=== PATIENT | male | born 1955 | race Caucasian/White ===

== ENCOUNTER 2017-06-20 08:39 | Inpatient (IN) | payer MEDICAID, OTHER ==
[~2017-06-20] VITALS: Ht 180.3 cm; Wt 36.1 kg
[2017-06-20 09:22] LABS: Basophils # (auto) 0.1 uL; Eosinophils # (auto) 0.1 uL; Eosinophils % (auto) 0.9 % (0.0-7.0); Hematocrit 36.5 % (41.0-53.0); Hemoglobin 11.5 g/dL (13.5-17.5); Lymphocytes # (auto) 0.2 uL; Lymphocytes % (auto) 3.9 % (10.0-50.0); Mean Corpuscular Hemoglobin 29.3 pg (28.0-32.0); Mean Corpuscular Hgb Conc. 31.5 g/dL (32.0-36.0); Mean Corpuscular Volume 93.1 fL (80.0-100.0); Monocytes # (auto) 0.4 uL; Monocytes % (auto) 6.7 % (0.0-12.0); Neutrophils # (auto) 5.4 uL; Neutrophils % (auto) 87.5 % (37.0-80.0); Platelet Count (auto) 215 10^3/uL (140-450); Red Blood Cells 3.92 10^6/uL (4.5-5.90); Red Cell Distribution Width 15.5 % (11.8-14.3); White Blood Cell 6.2 10^3/uL (4.4-10.8)
[2017-06-20 09:47] LABS: Alanine Aminotransferase 86 U/L (16-61); Albumin 2.5 g/dL (3.4-5.0); Anion Gap 4 (5-15); Aspartate Aminotransferase 39 U/L (15-37); BUN/Creatinine Ratio 47.1; Blood Urea Nitrogen 32 mg/dL (7-18); Calcium 8.8 mg/dL (8.5-10.1); Carbon Dioxide 35 mmol/L (21-32); Chloride 100 mmol/L (98-107); GFR African American 151 mL/min; GFR Non-African American 125 mL/min; Glucose 108 mg/dL (74-106); Magnesium 2.3 mg/dL (1.6-2.6); Potassium 4.3 mmol/L (3.5-5.1); Sodium 139 mmol/L (136-145)
[2017-06-20 09:52] LABS: Alkaline Phosphatase 79 U/L (45-117); Bilirubin, Total 0.6 mg/dL (0.2-1.0); Total Protein 5.6 g/dL (6.4-8.2)
[2017-06-20 10:41] LABS: Urine Bacteria NONE SEEN /hpf (None Seen); Urine Blood 1+ /uL (Negative); Urine Specific Gravity 1.011 (1.001-1.035); Urine WBC 3 /hpf (0 - 3)
[2017-06-20] MEDS ORDERED: FUROSEMIDE 40 MG/4 ML VIAL IV ONE (15:00)
[2017-06-20] MEDS ORDERED: SPIRONOLACTONE 25 MG TAB PO ONE (15:00)
[2017-06-20] MEDS ORDERED: HYDROcodone-ACET 5/325MG TAB PO PRN (15:30)
[2017-06-20] MEDS ORDERED: LORazepam 0.5 MG TAB PO PRN (15:30)
[2017-06-20] MEDS ORDERED: MORPHINE SULFATE 4 MG/ML SYR/VIAL IV PRN ×2 (15:30)
[2017-06-20] MEDS ORDERED: OSELTAMIVIR 75 MG CAP PO ONE (15:30)
[2017-06-20] MEDS ORDERED: LACTULOSE 20Gm/30ML SOLN PO PRN (15:30)
[2017-06-20] MEDS ORDERED: NITROGLYCERIN 0.4 MG SL TAB SL PRN (15:30)
[2017-06-20] MEDS ORDERED: ACETAMINOPHEN 500 MG TAB PO PRN (15:30)
[2017-06-20] MEDS ORDERED: ALBUTEROL SULF 2.5 MG/0.5ML(0.5%) NEB SOLN NEB PRN (15:30)
[2017-06-20] MEDS ORDERED: PROMETHAZINE HCL 25 MG/ML 1ML IV PRN (15:30)
[2017-06-20] MEDS ORDERED: TEMAZEPAM 15 MG CAP PO PRN (15:30)
[2017-06-20] MEDS: PANTOPRAZOLE 40 MG TAB PO SCH (16:00)
[2017-06-20] MEDS: DOXYCYCLINE HYC 100MG/250ML 250 ML IV SCH (16:00)
[2017-06-20] MEDS: methylPREDNISolone SOD SUCC 40 MG/ML VL IV SCH (16:00)
[2017-06-20] MEDS: POTASSIUM CHL 20 Meq TABLET PO SCH (16:00)
[2017-06-20 16:07] VITALS: BP 113/83
[2017-06-20 18:00] VITALS: BP 130/74
[2017-06-20] MEDS: NITROGLYCERIN 0.2MG/HR TOPICAL PATCH TD SCH (18:22)
[2017-06-20] MEDS: IPRATROPIUM BROM 0.5 MG/2.5ML INH SOL NEB SCH (18:47)
[2017-06-20] MEDS: ALBUTEROL SULF 2.5 MG/0.5ML(0.5%) NEB SOLN NEB SCH (18:47)
[2017-06-20 19:17] LABS: Hemoglobin 11.2 g/dL (13.5-17.5)
[2017-06-20 22:00] VITALS: BP 120/65
[2017-06-20] MEDS ORDERED: OSELTAMIVIR 75 MG CAP PO SCH (22:00)
[2017-06-20] MEDS: SODIUM CHLOR 0.9% PF (SALINE LOCK) 10ML VIAL IV SCH (22:49)
[2017-06-20] MEDS: CARVEDILOL 3.125 MG TAB PO SCH (22:50)
[2017-06-21] MEDS: IPRATROPIUM BROM 0.5 MG/2.5ML INH SOL NEB SCH ×4 (00:42→19:04)
[2017-06-21] MEDS: ALBUTEROL SULF 2.5 MG/0.5ML(0.5%) NEB SOLN NEB SCH ×4 (00:43→19:04)
[2017-06-21 00:48] LABS: Hematocrit 27.9 % (41.0-53.0); Hemoglobin 9.1 g/dL (13.5-17.5)
[2017-06-21] MEDS: methylPREDNISolone SOD SUCC 40 MG/ML VL IV SCH ×2 (02:45→16:03)
[2017-06-21] MEDS: DOXYCYCLINE HYC 100MG/250ML 250 ML IV SCH ×2 (02:45→16:03)
[2017-06-21 05:20] VITALS: BP 111/68
[2017-06-21] MEDS: SODIUM CHLOR 0.9% PF (SALINE LOCK) 10ML VIAL IV SCH ×3 (06:13→22:03)
[2017-06-21 09:24] VITALS: BP 106/71
[2017-06-21 09:29] LABS: Basophils # (auto) 0 uL; Basophils % (auto) 0.9 % (0.0-2.0); Eosinophils # (auto) 0 uL; Eosinophils % (auto) 0.1 % (0.0-7.0); Hematocrit 30.6 % (41.0-53.0); Hemoglobin 9.9 g/dL (13.5-17.5); Lymphocytes # (auto) 0.1 uL; Lymphocytes % (auto) 2.7 % (10.0-50.0); Mean Corpuscular Hemoglobin 29.7 pg (28.0-32.0); Mean Corpuscular Hgb Conc. 32.4 g/dL (32.0-36.0); Mean Corpuscular Volume 91.7 fL (80.0-100.0); Monocytes # (auto) 0.2 uL; Monocytes % (auto) 3.4 % (0.0-12.0); Neutrophils # (auto) 4.7 uL; Neutrophils % (auto) 92.9 % (37.0-80.0); Platelet Count (auto) 218 10^3/uL (140-450); Red Blood Cells 3.34 10^6/uL (4.5-5.90); Red Cell Distribution Width 15.1 % (11.8-14.3); White Blood Cell 5.1 10^3/uL (4.4-10.8)
[2017-06-21 09:51] LABS: Albumin 2.1 g/dL (3.4-5.0); BUN/Creatinine Ratio 50.9; Bilirubin, Total 0.5 mg/dL (0.2-1.0); Calcium 8.5 mg/dL (8.5-10.1); Potassium 4.8 mmol/L (3.5-5.1); Total Protein 4.9 g/dL (6.4-8.2)
[2017-06-21] MEDS: CARVEDILOL 3.125 MG TAB PO SCH ×2 (09:57→22:00)
[2017-06-21] MEDS: ENALAPRIL MALEATE 2.5 MG TAB PO SCH (09:57)
[2017-06-21] MEDS: POTASSIUM CHL 20 Meq TABLET PO SCH (09:58)
[2017-06-21] MEDS: ASPirin 81 mg TAB PO SCH (09:58)
[2017-06-21] MEDS: PANTOPRAZOLE 40 MG TAB PO SCH (09:58)
[2017-06-21] MEDS: FUROSEMIDE 40 MG/4 ML VIAL IV SCH (09:58)
[2017-06-21 13:00] VITALS: BP 106/60
[2017-06-21] MEDS ORDERED: PANT40TA2 PO (14:14)
[2017-06-21] MEDS ORDERED: ACLI1AER2 IN (14:14)
[2017-06-21] MEDS ORDERED: ASPI81TA27 PO (14:14)
[2017-06-21] MEDS ORDERED: ARTISOL13 EACHEYE (14:14)
[2017-06-21] MEDS ORDERED: PRE1T PO (14:14)
[2017-06-21] MEDS ORDERED: ALBUAER3 IN (14:14)
[2017-06-21] MEDS ORDERED: ACET250T3 PO (14:14)
[2017-06-21 17:05] VITALS: BP 101/70
[2017-06-21] MEDS: NITROGLYCERIN 0.2MG/HR TOPICAL PATCH TD SCH (18:00)
[2017-06-21 21:30] VITALS: BP 92/58
[2017-06-22] MEDS: IPRATROPIUM BROM 0.5 MG/2.5ML INH SOL NEB SCH ×4 (00:05→18:44)
[2017-06-22] MEDS: ALBUTEROL SULF 2.5 MG/0.5ML(0.5%) NEB SOLN NEB SCH ×4 (00:05→18:43)
[2017-06-22] MEDS: methylPREDNISolone SOD SUCC 40 MG/ML VL IV SCH ×2 (03:27→16:01)
[2017-06-22] MEDS: DOXYCYCLINE HYC 100MG/250ML 250 ML IV SCH ×2 (03:28→16:02)
[2017-06-22 05:00] VITALS: BP 102/62
[2017-06-22] MEDS: SODIUM CHLOR 0.9% PF (SALINE LOCK) 10ML VIAL IV SCH ×3 (05:53→22:19)
[2017-06-22 09:00] VITALS: BP 116/66
[2017-06-22] MEDS: FUROSEMIDE 40 MG/4 ML VIAL IV SCH (10:02)
[2017-06-22] MEDS: ENALAPRIL MALEATE 2.5 MG TAB PO SCH (10:02)
[2017-06-22] MEDS: POTASSIUM CHL 20 Meq TABLET PO SCH (10:02)
[2017-06-22] MEDS: PANTOPRAZOLE 40 MG TAB PO SCH (10:02)
[2017-06-22] MEDS: ASPirin 81 mg TAB PO SCH (10:02)
[2017-06-22] MEDS: CARVEDILOL 3.125 MG TAB PO SCH ×2 (10:03→22:19)
[2017-06-22 12:00] VITALS: BP 102/61
[2017-06-22 18:00] VITALS: BP 119/76
[2017-06-22] MEDS: NITROGLYCERIN 0.2MG/HR TOPICAL PATCH TD SCH (18:00)
[2017-06-22] MEDS ORDERED: diphenhdrAMINE HCL 50 MG/1 ML VL IV ONE (19:00)
[2017-06-22 22:00] VITALS: BP 113/72
[2017-06-23] MEDS: IPRATROPIUM BROM 0.5 MG/2.5ML INH SOL NEB SCH ×3 (00:24→12:11)
[2017-06-23] MEDS: ALBUTEROL SULF 2.5 MG/0.5ML(0.5%) NEB SOLN NEB SCH ×3 (00:25→12:11)
[2017-06-23] MEDS: methylPREDNISolone SOD SUCC 40 MG/ML VL IV SCH (04:21)
[2017-06-23] MEDS: DOXYCYCLINE HYC 100MG/250ML 250 ML IV SCH (04:22)
[2017-06-23] MEDS: SODIUM CHLOR 0.9% PF (SALINE LOCK) 10ML VIAL IV SCH (04:22)
[2017-06-23 05:00] VITALS: BP 121/80
[2017-06-23 08:42] VITALS: BP 126/77
[2017-06-23 09:01] VITALS: BP 126/77
[2017-06-23] MEDS: FUROSEMIDE 40 MG/4 ML VIAL IV SCH (10:29)
[2017-06-23] MEDS: ASPirin 81 mg TAB PO SCH (10:29)
[2017-06-23] MEDS: POTASSIUM CHL 20 Meq TABLET PO SCH (10:30)
[2017-06-23] MEDS: CARVEDILOL 3.125 MG TAB PO SCH (10:30)
[2017-06-23] MEDS: ENALAPRIL MALEATE 2.5 MG TAB PO SCH (10:30)
[2017-06-23] MEDS: PANTOPRAZOLE 40 MG TAB PO SCH (10:31)
[2017-06-23 12:08] VITALS: BP 118/72
[2017-06-23 15:01] VITALS: BP 118/72
[2017-06-23 15:45] VITALS: BP 103/65
== END 2017-06-23 16:55 | DRG 139 ==
LOC: EDBD 08:39 → ER 08:39 → TELE 08:40 → TELE-CENTR 18:46
PROVIDERS: ADMIT Internal Medicine; ATTEND Internal Medicine
PROC: 5A09357 Assistance with Respiratory Ventilation, Less than 24 Consecutive Hours, Continuous Positive Airway Pressure (ICD-10-PCS; principal; 2017-06-21)
DX: J18.9 Pneumonia, unspecified organism (principal); I50.43 Acute on chronic combined systolic (congestive) and diastolic (congestive) heart failure; E43 Unspecified severe protein-calorie malnutrition; L89.94 Pressure ulcer of unspecified site, stage 4; I11.0 Hypertensive heart disease with heart failure; E46 Unspecified protein-calorie malnutrition; R33.9 Retention of urine, unspecified; J44.0 Chronic obstructive pulmonary disease with (acute) lower respiratory infection; Z79.82 Long term (current) use of aspirin; Z79.899 Other long term (current) drug therapy; D63.8 Anemia in other chronic diseases classified elsewhere; Z87.891 Personal history of nicotine dependence; Z82.49 Family history of ischemic heart disease and other diseases of the circulatory system; Z68.1 Body mass index [BMI] 19.9 or less, adult; E88.09 Other disorders of plasma-protein metabolism, not elsewhere classified
CPT/HCPCS: 36415; 51702; 71045; 74176; 76775; 80053; 80061; 81001; 82550; 83605; 83735; 83880; 84443; 84484; 85014; 85018; 85025; 87040; 87070; 87081; 87205; 87804; 93005; 93306; 93970; 94640; 94660; 94761; 96374; 97163; J3490

== ENCOUNTER 2017-08-03 09:00 | Emergency (ER) | payer MEDICAID ==
[~2017-08-03] VITALS: Ht 180.3 cm; Wt 49.9 kg
[~2017-08-03 09:00] MED LIST: ACET250T3 PO; ACLI1AER2 IN; ALBUAER3 IN; ARTISOL13 EACHEYE; ASPI81TA27 PO; PANT40TA2 PO; PRE1T PO
[2017-08-03] MEDS ORDERED: cefTRIAXone W LIDOCAINE 1 GM IM IM ONE (11:15)
[2017-08-03 11:18] LABS: Urine Bacteria MANY /hpf (None Seen); Urine Blood 1+ /uL (Negative); Urine Mucus FEW (None Seen); Urine Specific Gravity 1.017 (1.001-1.035); Urine WBC 218 /hpf (0 - 3); Urine WBC Clumps PRESENT /hpf (None Seen)
[2017-08-03 11:19] VITALS: BP 127/77
== END 2017-08-03 12:22 | disposition home or self-care (01) ==
LOC: ER 09:00
DX: N39.0 Urinary tract infection, site not specified (principal); J44.9 Chronic obstructive pulmonary disease, unspecified; I10 Essential (primary) hypertension
CPT/HCPCS: 51702; 81001; 96372; 99284; J0696

== ENCOUNTER 2018-12-02 10:05 | Inpatient (IN) | payer MEDICARE, MEDICAID ==
[~2018-12-02] VITALS: Ht 180.3 cm; Wt 60.4 kg
[~2018-12-02 10:05] MED LIST changes: +ASPI-404 PO; -ASPI81TA27 PO
[2018-12-02] MEDS ORDERED: SODIUM CHLORIDE 0.9% 1,000 ML IV ONE ×2 (11:08)
[2018-12-02 12:10] LABS: Basophils # (auto) 0.1 uL; Basophils % (auto) 0.7 % (0.0-2.0); Eosinophils # (auto) 0.1 uL; Eosinophils % (auto) 1.2 % (0.0-7.0); Hemoglobin 12.2 g/dL (13.5-17.5); Lymphocytes # (auto) 0.8 uL; Lymphocytes % (auto) 11.1 % (10.0-50.0); Mean Corpuscular Hemoglobin 30.9 pg (28.0-32.0); Mean Corpuscular Hgb Conc. 33.7 g/dL (32.0-36.0); Mean Corpuscular Volume 91.7 fL (80.0-100.0); Monocytes # (auto) 0.7 uL; Monocytes % (auto) 9.4 % (0.0-12.0); Neutrophils # (auto) 5.4 uL; Neutrophils % (auto) 77.6 % (37.0-80.0); Nucleated Red Blood Cells % 0.1 %; Platelet Count (auto) 234 10^3/uL (140-450); Red Blood Cells 3.93 10^6/uL (4.5-5.90); Red Cell Distribution Width 13.6 % (11.8-14.3); White Blood Cell 6.9 10^3/uL (4.4-10.8)
[2018-12-02 12:38] LABS: Albumin 3.1 g/dL (3.4-5.0); Anion Gap 6 (5-15); BUN/Creatinine Ratio 17.1; Blood Urea Nitrogen 13 mg/dL (7-18); Calcium 8.7 mg/dL (8.5-10.1); Carbon Dioxide 31 mmol/L (21-32); Chloride 104 mmol/L (98-107); GFR African American 132 mL/min; GFR Non-African American 109 mL/min; Glucose 92 mg/dL (74-106); Potassium 3.5 mmol/L (3.5-5.1); Sodium 141 mmol/L (136-145)
[2018-12-02 12:58] LABS: Alanine Aminotransferase 15 U/L (16-61); Alkaline Phosphatase 62 U/L (45-117); Aspartate Aminotransferase 10 U/L (15-37); Bilirubin, Total 0.7 mg/dL (0.2-1.0); Total Protein 6.2 g/dL (6.4-8.2)
[2018-12-02] MEDS ORDERED: POTASSIUM CHL 20 Meq TABLET PO ONE (13:15)
[2018-12-02 13:27] LABS: INR 0.95 (0.9-1.15); Partial Thromboplastin Time 27.2 sec (23.64-32.05)
[2018-12-02] MEDS ORDERED: PROMETHAZINE HCL 25 MG/ML 1ML IV PRN (13:30)
[2018-12-02] MEDS ORDERED: LACTULOSE 20Gm/30ML SOLN PO PRN (13:30)
[2018-12-02] MEDS ORDERED: MORPHINE SULFATE 4 MG/ML SYR/VIAL IV PRN (13:30)
[2018-12-02] MEDS ORDERED: TEMAZEPAM 15 MG CAP PO PRN (13:30)
--- NOTE | 2018-12-02 14:36 | NUR ---
MS admit from ER CROW PAYNE admitted to MED SURG unit after SBAR received. Patient oriented to Magalis Phillip RN primary RN, unit, room, bed, and unit policies regarding patient care and visiting hours. Patient weighed by bed scale and encouraged to call if they need something. All questions and concerns addressed, patient verbalized understanding. Note: Resource RN at bedside to complete admission. Student Bender Machine Roberta completing physical assessment.
[2018-12-02] MEDS ORDERED: IBUP400T21 PO (15:03)
[2018-12-02] MEDS ORDERED: FURO40TA4 PO (15:03)
[2018-12-02 16:54] VITALS: BP 136/82
[2018-12-02] MEDS: ACETAMINOPHEN 500 MG TAB PO PRN ×2 (17:02→22:49)
[2018-12-02] MEDS: SODIUM CHLORIDE 0.9% 1,000 ML IV SCH (17:04)
[2018-12-02] MEDS: ACCU-CHEK COMFORT CURVE STRIP VI SCH ×2 (17:05→20:31)
[2018-12-02] MEDS ORDERED: FLUT100I IN (17:08)
[2018-12-02] MEDS ORDERED: CARV3.1240 PO (17:08)
[2018-12-02] MEDS: ARTIFICIAL TEARS 15ml EACHEYE SCH (17:24)
[2018-12-02] MEDS ORDERED: ARTIFICIAL TEAR EACHEYE SCH (18:00)
[2018-12-02 21:12] LABS: Urine Bacteria NONE SEEN /hpf (None Seen); Urine Blood Negative /uL (Negative); Urine Mucus FEW (None Seen); Urine Specific Gravity 1.018 (1.001-1.035); Urine WBC 4 /hpf (0 - 3)
[2018-12-02 22:00] VITALS: BP 116/69
[2018-12-03] VITALS (15 sets, daily range): BP systolic 99–137; BP diastolic 58–90
[2018-12-03] MEDS: SODIUM CHLORIDE 0.9% 1,000 ML IV SCH ×3 (00:11→19:25)
[2018-12-03] MEDS: ACCU-CHEK COMFORT CURVE STRIP VI SCH ×6 (00:12→19:55)
[2018-12-03] MEDS: ARTIFICIAL TEARS 15ml EACHEYE SCH ×4 (04:56→17:42)
--- NOTE | 2018-12-03 06:57 | NUR ---
PAGED HEAT TREAT TECHNICIAN OPERATIONS AND MAINTENANCE SUPERVISOR, AWAITING CALL BACK.
--- NOTE | 2018-12-03 06:58 | NUR ---
PATIENT NPO SINCE MIDNIGHT FOR SURGERY TODAY 12/03/18, POTASSIUM LEVEL THIS AM 4.2, MAGNESIUM LEVEL 2.1. ECHO COMPLETED 12/02/18.
--- NOTE | 2018-12-03 08:00 | NUR ---
Opening Shift Note Assumed care of patient, awake and alert. No S/S of distress/SOB or pain. Instructed on POC and to call for assist PRN, will continue to monitor for changes Q1hr and PRN.
--- NOTE | 2018-12-03 08:56 | NUR ---
CARDIAC CLEARANCE. I JUST SPOKE TO DR HERCULES ON THE TELEPHONE AND HE SAID THAT HE CLEARED THIS PATIENT FOR SURGERY AFTER EXAMINING THE PATIENT YESTERDAY.
[2018-12-03] MEDS: acetaZOLAMIDE 250 MG TAB PO SCH (09:24)
[2018-12-03] MEDS: ACLIDINIUM BROMIDE PO SCH (09:24)
[2018-12-03] MEDS: PANTOPRAZOLE 40 MG TAB PO SCH (09:25)
[2018-12-03] MEDS ORDERED: ALBUTEROL SULF 2.5 MG/0.5ML(0.5%) NEB SOLN NEB SCH (10:00)
[2018-12-03] MEDS ORDERED: PATIENTS OWN MEDICATION (Albuterol Sulfate (Ventolin Mdi) 90 MCG) IN SCH (10:00)
[2018-12-03] MEDS ORDERED: ACLIDINIUM BROMIDE 400 MCG IN SCH (10:00)
--- NOTE | 2018-12-03 10:40 | NUR ---
Surgery Patient was taken down in his bed for surgery by this nurse and aluminum pool installer (Angelo). All belongings left in the room in the bedside table 2nd drawer. Patient alert and oriented. All consents signed, surgical checklist done, pt NPO.
[2018-12-03] MEDS ORDERED: SUCCINYLCHOLINE CHLORIDE 20 MG/ML 10ML VIAL IV ONE (10:53)
[2018-12-03] MEDS ORDERED: TETRACAINE 1% INJ 2 ML VIAL IJ ONE (10:53)
[2018-12-03] MEDS ORDERED: MORPHINE SULF(PF) 0.5MG/ML 10ML VIAL ONE (10:55)
[2018-12-03] MEDS ORDERED: ePHEDrine SULFATE 50 MG/ML AMP ONE (10:56)
[2018-12-03] MEDS ORDERED: SODIUM CHLORIDE LOCK 10 ML ONE (10:56)
[2018-12-03] MEDS ORDERED: MIDAZOLAM HCL 1MG/1ML-2 ML VIAL ONE (10:56)
[2018-12-03] MEDS ORDERED: fentaNYL CITRATE 100 MCG/2 ML VL ONE (11:01)
[2018-12-03] MEDS ORDERED: PROPOFOL 10 MG/ML 20 ML IV ONE ×2 (11:30→11:31)
[2018-12-03] MEDS ORDERED: LIDOCAINE 1% (LOCAL ANESTH.) PF 5ml SDV ONE (11:30)
[2018-12-03] MEDS ORDERED: ceFAZolin 1GM/50ML 50 ML IV ONE (11:39)
[2018-12-03] MEDS ORDERED: METOCLOPRAMIDE HCL 5MG/ml INJ 2ml VIAL ONE (11:39)
[2018-12-03] MEDS ORDERED: ESMOLOL HCL 10 ML IV ONE (11:54)
[2018-12-03] MEDS ORDERED: NALOXONE HCL 0.4 MG/ML VIAL IV PRN ×2 (12:15)
[2018-12-03] MEDS ORDERED: HYDROmorphone HCL 2 MG/ML VL IV PRN (12:15)
[2018-12-03] MEDS ORDERED: ONDANSETRON HCL 4 MG/2 ML VIAL IV PRN (12:15)
[2018-12-03] MEDS ORDERED: ONDANSETRON HCL 4 MG/2 ML VIAL IV ONE (12:15)
[2018-12-03] MEDS ORDERED: diphenhdrAMINE HCL 50 MG/1 ML VL IV PRN (12:15)
[2018-12-03] MEDS ORDERED: KETOROLAC TROMETH 15 mg/ml 1ML VL IV PRN (12:15)
[2018-12-03] MEDS: ALBUTEROL SULF 2.5 MG/0.5ML(0.5%) NEB SOLN NEB SCH ×2 (12:58→20:03)
[2018-12-03] MEDS: IPRATROPIUM BROM 0.5 MG/2.5ML INH SOL NEB SCH ×2 (12:58→20:02)
--- NOTE | 2018-12-03 12:59 | NUR ---
Respiratory note: 1200 MED NEB TX HELD. PT IS IN OR.
--- NOTE | 2018-12-03 13:18 | NUR ---
RETURNED TO FLOOR PATIENT WAS BROUGHT BACK UP TO THE FLOOR. AWAKE AND ALERT, A LITTLE DROWSY. [place] CATHETER IN PLACE. PATIENT PLACED ON 2L NC O2.
--- NOTE | 2018-12-03 13:30 | NUR ---
RT NOTE: PT WAS PLACED ON CONT. BEDSIDE PULSE OX. PT WAS ON 2L NC, HR 89, SPO2 96%. PT SITTING UP IN BED EATING. WILL CONTINUE TO MONITOR PT.
[2018-12-03] MEDS: LACTATED RINGER'S 1,000 ML IV SCH ×2 (14:17→21:03)
[2018-12-03] MEDS: SODIUM CHLOR 0.9% PF (SALINE LOCK) 10ML VIAL/SYR IV SCH ×2 (14:17→21:02)
[2018-12-03] MEDS: ceFAZolin 1GM/50ML 50 ML IV SCH ×2 (14:17→17:42)
--- NOTE | 2018-12-03 19:15 | NUR ---
Patient received in bed alert and responsive, denies pain. Left hip with aquacel dressing intact,no drainage noted, left leg warm. V/S stable. Frazier cath in place draining clear yellow urine. IVF infusing as ordered.
[2018-12-04] VITALS (15 sets, daily range): BP systolic 89–146; BP diastolic 59–78
[2018-12-04] MEDS: ceFAZolin 1GM/50ML 50 ML IV SCH (00:07)
[2018-12-04] MEDS: ARTIFICIAL TEARS 15ml EACHEYE SCH ×5 (00:07→23:49)
[2018-12-04] MEDS: ACCU-CHEK COMFORT CURVE STRIP VI SCH ×7 (00:07→23:49)
[2018-12-04] MEDS: traMADol HCL 50 MG TAB PO PRN ×2 (04:25→17:16)
[2018-12-04] MEDS: SODIUM CHLORIDE 0.9% 1,000 ML IV SCH ×3 (04:27→22:58)
[2018-12-04] MEDS: SODIUM CHLOR 0.9% PF (SALINE LOCK) 10ML VIAL/SYR IV SCH ×3 (05:34→19:50)
[2018-12-04 06:53] LABS: Basophils # (auto) 0 uL; Basophils % (auto) 0.5 % (0.0-2.0); Eosinophils # (auto) 0.2 uL; Eosinophils % (auto) 2.3 % (0.0-7.0); Hematocrit 31.6 % (41.0-53.0); Hemoglobin 10.6 g/dL (13.5-17.5); Lymphocytes # (auto) 0.7 uL; Lymphocytes % (auto) 9.4 % (10.0-50.0); Mean Corpuscular Hemoglobin 31.2 pg (28.0-32.0); Mean Corpuscular Hgb Conc. 33.6 g/dL (32.0-36.0); Mean Corpuscular Volume 92.8 fL (80.0-100.0); Monocytes # (auto) 0.7 uL; Monocytes % (auto) 9.4 % (0.0-12.0); Neutrophils # (auto) 5.4 uL; Neutrophils % (auto) 78.4 % (37.0-80.0); Platelet Count (auto) 214 10^3/uL (140-450); Red Cell Distribution Width 13.7 % (11.8-14.3); White Blood Cell 6.9 10^3/uL (4.4-10.8)
[2018-12-04] MEDS: IPRATROPIUM BROM 0.5 MG/2.5ML INH SOL NEB SCH ×3 (07:00→19:37)
[2018-12-04] MEDS: ALBUTEROL SULF 2.5 MG/0.5ML(0.5%) NEB SOLN NEB SCH ×3 (07:00→19:37)
[2018-12-04] MEDS: LACTATED RINGER'S 1,000 ML IV SCH (08:25)
[2018-12-04] MEDS: acetaZOLAMIDE 250 MG TAB PO SCH (10:12)
[2018-12-04] MEDS: PANTOPRAZOLE 40 MG TAB PO SCH (10:12)
[2018-12-04] MEDS: ACLIDINIUM BROMIDE PO SCH (10:12)
[2018-12-04] MEDS: ENOXAPARIN SOD 30 MG/0.3 ML SYRINGE SC SCH (10:13)
--- NOTE | 2018-12-04 14:12 | NUR ---
D/C'D LR DISCONTINUED LACTATED RINGER PER DR. ORELLANA'S NOTE TO STOP IT WHEN THE PATIENT IS TOLERATING CLEAR LIQUIDS. PATIENT IS EATING AND DRINKING WELL AND TOLERATING FOOD AND FLUIDS. D/C'D LR.
--- NOTE | 2018-12-04 20:17 | NUR ---
Lactulose given for constipation. Addendum: 12/05/18 at 0650 by HANNAH BLAIR RN NO RESULT OF 06
[2018-12-05] VITALS (7 sets, daily range): BP systolic 126–148; BP diastolic 65–77
[2018-12-05] MEDS: ACCU-CHEK COMFORT CURVE STRIP VI SCH ×5 (03:52→20:00)
[2018-12-05] MEDS: ALBUTEROL SULF 2.5 MG/0.5ML(0.5%) NEB SOLN NEB SCH ×3 (05:45→19:08)
[2018-12-05] MEDS: IPRATROPIUM BROM 0.5 MG/2.5ML INH SOL NEB SCH ×3 (05:45→19:08)
[2018-12-05] MEDS: ARTIFICIAL TEARS 15ml EACHEYE SCH ×2 (06:06→13:59)
[2018-12-05] MEDS: SODIUM CHLOR 0.9% PF (SALINE LOCK) 10ML VIAL/SYR IV SCH ×2 (06:06→14:00)
[2018-12-05 06:57] LABS: Hemoglobin 9.9 g/dL (13.5-17.5)
--- NOTE | 2018-12-05 07:40 | NUR ---
OPENING SHIFT NOTE PATIENT AWAKE AND ALERT IN BED ORIENTED X4. PATIENT VERBALIZED UNDERSTANDING OF DAYS POC, AND DENIES ANY PAIN, SOB OR ANY DISTRESS. BED IN LOWEST LOCKED POSITION CALL LIGHT WITH IN REACH WILL CONTINUE TO MONITOR
[2018-12-05] MEDS: acetaZOLAMIDE 250 MG TAB PO SCH (09:06)
[2018-12-05] MEDS: ENOXAPARIN SOD 30 MG/0.3 ML SYRINGE SC SCH (09:06)
[2018-12-05] MEDS: PANTOPRAZOLE 40 MG TAB PO SCH (09:06)
[2018-12-05] MEDS: ACLIDINIUM BROMIDE PO SCH (09:07)
[2018-12-05] MEDS: traMADol HCL 50 MG TAB PO PRN ×2 (09:08→20:55)
[2018-12-05] MEDS: SODIUM CHLORIDE 0.9% 1,000 ML IV SCH (13:59)
--- NOTE | 2018-12-05 16:13 | NUR ---
Per consult for SNF placement. Information and choice letter was given to pt. Pt requested [facility] as only choice. Pt was informed [facility] is in [facility] Pt verbalize and agrees d/c plan. Contacted [facility] Ph:) ) faxed medical records. Demetrius Matamoros from [facility] Pt has been accepted to room [address] C accepting MD Dr. Dumas. [facility] will supervisor opening and picking pt between the hours 19:00-20:00. Informed HESHAM Andrew. Addendum: 12/05/18 at 1618 by LEFTY PRINGLE Amended: Links added.
--- NOTE | 2018-12-05 17:00 | NUR ---
REPORT GIVEN TO GONZALEZ AT [facility] AT THIS TIME. ALL QUESTIONS ANSWERED.
--- NOTE | 2018-12-05 17:04 | NUR ---
assessment Patient is a 63 year old male who is alert and oriented. Patient informed me prior to admission he lived home with a friend and was independent. Patients PCP is Dr Vieyra. Patient has been admitted for left hip fracture. Patient is requesting rehab at [facility] in [place]. Dr Carroll was at bedside with us and agreed to rehab post discharge. Patient has a wheelchair, fww, cane and home 02. Patient verbalized understanding and agreed to discharge plan to rehab. Addendum: 12/05/18 at 1707 by Licha ALLEN Amended: Links added.
--- NOTE | 2018-12-05 18:48 | NUR ---
end of shift note/discharge patient awake alert and oriented x4. all discharge instructions given, all questions and concerns addressed. iv removed, catheter intact pressure dressing applied patient tolerated well. all transfer paper work completed. will give nightshift instructions on transfer. [facility] will be picking patient up between 7pm and 8pm, transportation still has not arrived will endorse care to noc rn
--- NOTE | 2018-12-05 19:21 | NUR ---
Opening Shift Note Assumed care of patient, awake and alert. No S/S of distress/SOB or pain. Instructed on POC and to call for assist PRN, will continue to monitor for changes Q1hr and PRN. Waiting for transport to arrive. Patient getting breathing treatment at the moment.
--- NOTE | 2018-12-05 20:20 | NUR ---
[facility] HAS NOT COME TO ELECTRIC ORGAN ASSEMBLER AND CHECKER PATIENT. CALLED [facility] AND SPOKE WITH ALEC TIME WAS CHANGED TO 9:30PM. PATIENT NOTIFIED OF CHANGE IN TIME.
--- NOTE | 2018-12-05 21:45 | NUR ---
PATIENT PICKED UP BY [facility]SPORT IN STABLE CONDITION.
== END 2018-12-05 21:30 | DRG 481 ==
LOC: ER 10:05 → OVERFLOW 10:06 → WEST WING 14:26
PROVIDERS: ADMIT Internal Medicine; ATTEND Family Medicine
PROC: 0QS736Z Reposition Left Upper Femur with Intramedullary Internal Fixation Device, Percutaneous Approach (ICD-10-PCS; principal; 2018-12-03 10:53)
DX: S72.142A Displaced intertrochanteric fracture of left femur, initial encounter for closed fracture (principal); I50.22 Chronic systolic (congestive) heart failure; E16.2 Hypoglycemia, unspecified; I11.0 Hypertensive heart disease with heart failure; M19.90 Unspecified osteoarthritis, unspecified site; I27.20 Pulmonary hypertension, unspecified; I35.1 Nonrheumatic aortic (valve) insufficiency; J43.9 Emphysema, unspecified; G47.33 Obstructive sleep apnea (adult) (pediatric); W01.0XXA Fall on same level from slipping, tripping and stumbling without subsequent striking against object, initial encounter; Z82.0 Family history of epilepsy and other diseases of the nervous system; Z87.01 Personal history of pneumonia (recurrent); Z87.891 Personal history of nicotine dependence; Z79.899 Other long term (current) drug therapy; Y93.89 Activity, other specified; Y92.89 Other specified places as the place of occurrence of the external cause; Y99.8 Other external cause status
CPT/HCPCS: 36415; 71045; 73502; 80053; 81001; 82962; 83735; 84132; 84484; 85014; 85018; 85025; 85610; 85730; 86850; 86900; 86901; 93005; 93306; 94640; 94762; 96360; 97110; 97116; 97163; 97530; G0378; J0330; J0690; J2250; J2704